=== PATIENT | female | born 1955 ===

== ENCOUNTER 2017-08-29 13:00 | Inpatient (IN) | payer OTHER ==
[~2017-08-29] VITALS: Ht 152.4 cm; Wt 72.6 kg
[2017-08-29] MEDS ORDERED: LOSARTAN-HCTZ1 EACH PO (14:56)
[2017-08-29] MEDS ORDERED: METOPROLOL SUCC25 MG PO (14:56)
[2017-08-29] MEDS ORDERED: DICLOFENAC POTA50 MG PO (14:56)
[2017-08-29] MEDS ORDERED: NORVASC5 MG PO (14:56)
[2017-08-29] MEDS ORDERED: PREDNISONE5 M1 PO (14:57)
[2017-08-29] MEDS ORDERED: ZANTAC300 MG PO (14:57)
[2017-08-29] MEDS ORDERED: PROTONIX20 MG PO (14:58)
[2017-08-31] MEDS ORDERED: NEURONTIN800 MG PO (08:01)
[2017-08-31] MEDS ORDERED: CLONAZEPAM1 MG PO (08:02)
[2017-08-31] MEDS ORDERED: AMOX-CLAV 875-1 EACH PO (08:02)
[2017-08-31] MEDS ORDERED: COLACE100 MG PO (08:02)
[2017-08-31] MEDS ORDERED: PERCOCET 5-3251 EACH PO (08:02)
[2017-08-31] MEDS ORDERED: ACETAMINOPHEN-1 EAC2 PO (11:57)
== END 2017-09-01 16:20 | DRG 454 ==
LOC: O/R 08-31 05:11 → SURG 08-31 05:11 → SURH 08-31 09:45 → SURG 08-31 13:21
PROVIDERS: Orthopaedic Surgery Orthopaedic Surgery of the Spine
PROC: 0SG1071 Fusion of 2 or more Lumbar Vertebral Joints with Autologous Tissue Substitute, Posterior Approach, Posterior Column, Open Approach (ICD-10-PCS; 2017-08-31)
PROC: 0ST20ZZ Resection of Lumbar Vertebral Disc, Open Approach (ICD-10-PCS; 2017-08-31)
PROC: 0SG10AJ Fusion of 2 or more Lumbar Vertebral Joints with Interbody Fusion Device, Posterior Approach, Anterior Column, Open Approach (ICD-10-PCS; 2017-08-31)
PROC: 07DS3ZZ Extraction of Vertebral Bone Marrow, Percutaneous Approach (ICD-10-PCS; 2017-08-31)
PROC: 0SG10A0 Fusion of 2 or more Lumbar Vertebral Joints with Interbody Fusion Device, Anterior Approach, Anterior Column, Open Approach (ICD-10-PCS; principal; 2017-08-31 09:45)
DX: M41.56 Other secondary scoliosis, lumbar region (principal); M51.06 Intervertebral disc disorders with myelopathy, lumbar region; M48.061 Spinal stenosis, lumbar region without neurogenic claudication; I10 Essential (primary) hypertension

== ENCOUNTER 2018-05-21 09:04 | Emergency (ER) | payer OTHER ==
[~2018-05-21] VITALS: Ht 152.4 cm; Wt 72.6 kg
[~2018-05-21 09:04] MED LIST: ACETAMINOPHEN-1 EAC2 PO; AMOX-CLAV 875-1 EACH PO; CLONAZEPAM1 MG PO; COLACE100 MG PO; DICLOFENAC POTA50 MG PO; LOSARTAN-HCTZ1 EACH PO; METOPROLOL SUCC25 MG PO; NEURONTIN800 MG PO; NORVASC5 MG PO; PERCOCET 5-3251 EACH PO; PREDNISONE5 M1 PO; PROTONIX20 MG PO; ZANTAC300 MG PO
== END 2018-05-21 12:56 | disposition home or self-care (01) ==
LOC: ER 09:04
DX: M41.86 Other forms of scoliosis, lumbar region (principal); M51.36 Other intervertebral disc degeneration, lumbar region; M54.5 Low back pain

== ENCOUNTER → 2018-06-12 | Emergency (ER) | payer OTHER ==
[~2018-06-12] VITALS: Ht 165.1 cm; Wt 70.3 kg
[~2018-06-12] MED LIST changes: +DELTASONE20 MG PO
== END | disposition designated cancer center or children's hospital (05) ==
LOC: ER 17:52
DX: M48.04 Spinal stenosis, thoracic region (principal)